=== PATIENT | male | born 1965 | race Caucasian/White ===

== ENCOUNTER → 2016-08-09 | Outpatient (CLI) | payer OTHER ==
--- NOTE | 2016-08-09 14:33 | DIAGNOSTIC IMAGING REPORT ---
CHEST 2 VIEWS ROUTINE CLINICAL HISTORY: Acute URI dyspnea COMPARISON STUDY: 04/27/2016 FINDINGS: The bones soft tissues and hemidiaphragms are normal. The cardiomediastinal silhouette is normal. The lungs are clear. The pulmonary vasculature is normal. IMPRESSION: Negative chest. Electronically signed by: Félix Bess M.D. 08/09/2016 2:31 PM Dictated Date/Time: 08/09/2016 2:29 PM
== END | disposition home or self-care (01) ==
LOC: C.RADPV 14:15
PROVIDERS: ATTEND Nurse Practitioner
DX: J06.9 Acute upper respiratory infection, unspecified (principal); R05 Cough

== ENCOUNTER → 2016-08-16 | Outpatient (CLI) | payer OTHER | END | disposition home or self-care (01) | LOC: C.LABPVFM 08:48 | PROVIDERS: ATTEND Nurse Practitioner | DX: Z11.59 Encounter for screening for other viral diseases (principal) ==

== ENCOUNTER → 2016-09-11 | Outpatient (CLI) | payer OTHER ==
--- NOTE | 2016-09-11 08:01 | DIAGNOSTIC IMAGING REPORT ---
CHEST CT WITHOUT CONTRAST CT DOSE: 267.41 mGy.cm HISTORY: R05 Cough, [id number] Dyspnea on [id number] TECHNIQUE: Multiaxial CT images of the chest were performed without contrast. COMPARISON: None. FINDINGS: The lungs are clear. The mediastinal vascular structures are within normal limits. No mediastinal or hilar lymphadenopathy. No pleural effusion or pneumothorax. Limited views of the upper abdomen demonstrate a normal liver and spleen. There is made of an upper pole 4 cm left renal cyst IMPRESSION: No acute process. Negative CT of the chest. 4 cm left renal cyst. Electronically signed by: Félix Bess M.D. 09/11/2016 7:58 AM Dictated Date/Time: 09/11/2016 7:56 AM
== END | disposition home or self-care (01) ==
LOC: C.CTS 07:38
PROVIDERS: ATTEND Nurse Practitioner
DX: R05 Cough (principal); R06.09 Other forms of dyspnea; N28.1 Cyst of kidney, acquired

== ENCOUNTER → 2016-10-31 | Outpatient (CLI) | payer OTHER ==
[2016-10-31 13:35] LABS: LYME DISEASE AB IGG NEG (NEG)
[2016-10-31 13:38] LABS: LYME DISEASE AB IGM NEG (NEG)
== END | disposition home or self-care (01) ==
LOC: C.LABPVFM 07:34
PROVIDERS: ATTEND Family Medicine
DX: S30.860A Insect bite (nonvenomous) of lower back and pelvis, initial encounter (principal); W57.XXXA Bitten or stung by nonvenomous insect and other nonvenomous arthropods, initial encounter; M79.1 Myalgia

== ENCOUNTER → 2016-11-01 | Outpatient (CLI) | payer OTHER ==
[2016-11-01 13:28] LABS: ALT/SGPT 29 U/L (12-78); AST/SGOT 19 U/L (15-37); BLOOD UREA NITROGEN 24 mg/dl (7-18); BUN/CREATININE RATIO 23.9 (10-20); CALCIUM 7.6 mg/dl (8.5-10.1); CARBON DIOXIDE 28 mmol/L (21-32); CHLORIDE 111 mmol/L (98-107); GLUCOSE 85 mg/dl (70-99); POTASSIUM 4.4 mmol/L (3.5-5.1); SODIUM 146 mmol/L (136-145)
[2016-11-01 13:31] LABS: ALB/GLOB RATIO 1.2 (0.9-2); ALKALINE PHOSPHATASE 70 U/L (45-117); CHOLESTEROL 203 mg/dl (0-200); CHOLESTEROL/HDL RATIO 3.3; HDL CHOLESTEROL 61 mg/dl; LDL CHOLESTEROL CALCULATED 96 mg/dl; TRIGLYCERIDES 230 mg/dl (0-150); VERY LOW DENSITY LIPOPROT CALC 46 mg/dl
== END | disposition home or self-care (01) ==
LOC: C.LABPVFM 07:25
PROVIDERS: ATTEND Neuromusculoskeletal Medicine & OMM
DX: Z00.00 Encounter for general adult medical examination without abnormal findings (principal)

== ENCOUNTER → 2017-09-10 | Outpatient (CLI) | payer OTHER ==
[2017-09-10 18:07] LABS: BLOOD UREA NITROGEN 28 mg/dl (7-18); CALCIUM 8.4 mg/dl (8.5-10.1); CARBON DIOXIDE 29 mmol/L (21-32); CREATININE 1.43 mg/dl (0.60-1.40); GLUCOSE 100 mg/dl (70-99); POTASSIUM 4.1 mmol/L (3.5-5.1); SODIUM 138 mmol/L (136-145)
== END | disposition home or self-care (01) ==
LOC: C.LABPVFM 14:52
PROVIDERS: ATTEND Nurse Practitioner
DX: R53.83 Other fatigue (principal)

== ENCOUNTER → 2017-09-17 | Outpatient (CLI) | payer OTHER ==
--- NOTE | 2017-09-17 09:54 | DIAGNOSTIC IMAGING REPORT ---
RIGHT GROIN ULTRASOUND CLINICAL HISTORY: Tender palpable right groin mass. Possible lymph node. COMPARISON STUDY: CT of the abdomen and pelvis August 19, 2013. TECHNIQUE: Sonography of the right groin was performed. FINDINGS: Note is made of multiple morphologically benign right inguinal lymph nodes which each contain a fatty hilum. The largest node measures 1.7 x 1.1 x 0.7 cm. No additional findings were noted on the study. IMPRESSION: Multiple morphologically benign right inguinal lymph nodes which likely reflect the palpable abnormality. These do not have suspicious imaging characteristics but clinical follow-up to ensure stability is recommended. If interval enlargement, repeat ultrasound is recommended. Electronically signed by: Edwin Bobby M.D. 09/17/2017 9:53 AM Dictated Date/Time: 09/17/2017 9:48 AM
== END | disposition home or self-care (01) ==
LOC: C.ULTR 08:45
PROVIDERS: ATTEND Nurse Practitioner
DX: R19.09 Other intra-abdominal and pelvic swelling, mass and lump (principal)